=== PATIENT | female | born 1980 | race African-American/Black ===

== ENCOUNTER 2018-09-08 11:51 | Inpatient (IN) | payer BC ==
--- NOTE | 2018-09-08 12:53 | HP ---
Screened but not Admitted - Documentation of Visit Screened but not Admitted: Yes Left Prior to Completion of Assessment: No Insurance Authorization Denied: No Patient Does Not Meet Criteria for Admission: No Level of Care Recommended at this Time: ER Evaluation/Care Alternative Treatment/Long-Term Info Provided: Yes Additional Information/Explanation: Patient is 37 yo female with hx of alcohol dependence and bipolar disorder on seroquel. Patient presents to [facility] for alcohol detox after evaluated at [facility] emergency room this morning for alcohol. Patient reports she fell "outside." Patient unable to specify where she fell. Patient has +hematoma on the left frontal side of the head. Patient was found on the floor by the waiting area, after reviewing the cameras; patient intentionally laid herself down on the floor. Patient presents intoxicated with KATHERINE =0.342. v/s 130/96, P124, RR18, P98.5 second set of vitals BP 127/77, P114, P98.2, RR18. urine tox +BZO. Pregnacy test negative. Fall Protocol #[address] Scan. Patient sent to [facility] via [facility] for further evaluation. [facility] attempted to endorse patient to provider, but no provider available d/t ED is busy.
[2018-09-08 21:45] VITALS: BMI 28.3
--- NOTE | 2018-09-08 22:13 | HP ---
CIWA Score Nausea/Vomitin (vomiting x 1) Muscle Tremors: 4-Moderate,w/Arms Extend Anxiety: 4-Mod. Anxious/Guarded Agitation: 4-Moderately Restless Paroxysmal Sweats: 2 Orientation: 0-Oriented Tacttile Disturbances: 0-None Auditory Disturbances: 0-None Visual Disturbances: 0-None Headache: 0-None Present CIWA-Ar Total Score: 16 - Admission Criteria OASAS Guidelines: Admission for Medically Managed Detox: Requires at least one of the followin. CIWA greater than 12 2. Seizures within the past 24 hours 3. Delirium tremens within the past 24 hours 4. Hallucinations within the past 24 hours 5. Acute intervention needed for co occurring medical disorder 6. Acute intervention needed for co occurring psychiatric disorder 7. Severe withdrawal that cannot be handled at a lower level of care (continued vomiting, continued diarrhea, abnormal vital signs) requiring intravenous medication and/or fluids 8. Admission ROS [facility] Chief Complaint: Alcohol withdrawal symptom Allergies/Adverse Reactions: Allergies Allergy/AdvReac Type Severity Reaction Status Date / Time No Known Allergies Allergy Verified 09/08/18 14:27 History of Present Illness: Received 37 years old female with 3 years of alcohol dependence who is seeking admission to detox from [facility]. Patient has been in previous detox at [facility] and reports in significant period of sobriety. She has history of depression and anxiety. [id number] suicide attempt and suicidal ideation at this time. Exam Limitations: No Limitations - Ebola screening Have you traveled outside of the country in the last 21 days: No Have you had contact with anyone from an Ebola affected area: No Do you have a fever: No - Review of Systems Constitutional: Chills, Loss of Appetite, Night Sweats, Changes in sleep EENT: reports: No Symptoms Reported Respiratory: reports: No Symptoms reported Cardiac: reports: No Symptoms Reported GI: reports: Nausea, Poor Appetite, Poor Fluid Intake, Vomiting (vomiting x 2), Abdominal cramping : reports: No Symptoms Reported Musculoskeletal: reports: No Symptoms Reported Integumentary: reports: Dryness, Flushing Neuro: reports: Tremors Endocrine: reports: No Symptoms Reported Hematology: reports: No Symptoms Reported Psychiatric: reports: Anxious, Depressed Other Systems: Reviewed and Negative Patient History - Patient Medical History Hx Anemia: No Hx Asthma: No Hx Chronic Obstructive Pulmonary Disease (COPD): No Hx Cancer: No Hx Cardiac Disorders: No Hx Congestive Heart Failure: No Hx Hypertension: No Hx Hypercholesterolemia: No Hx Pacemaker: No HX Cerebrovascular Accident: No Hx Seizures: No Hx Dementia: No Hx Diabetes: No Hx Gastrointestinal Disorders: No Hx Liver Disease: No Hx Genitourinary Disorders: No Hx Sexually Transmitted Disorders: No Hx Renal Disease (ESRD): No Hx Thyroid Disease: No Hx Human Immunodeficiency Virus (HIV): No (Negative 2017) Hx Hepatitis C: No Hx Depression: Yes Hx Suicide Attempt: No (Denies suicidal ideation at this time) Hx Bipolar Disorder: No Hx Schizophrenia: No Other Medical History: Anxiety - N ot on medication - Patient Surgical History Past Surgical History: Yes Hx Section: Yes (2018) - PPD History Previous Implant?: Yes Documented Results: Negative w/o proof Implanted On Prior R Admission?: No PPD to be Administered?: Yes - Reproductive History Patient is a Female of Child Bearing Age (11 -55 yrs old): Yes Last Menstrual Period: 09/03/18 Patient : No - Smoking Cessation Smoking history: Current every day smoker Have you smoked in the past 12 months: Yes Aproximately how many cigarettes per day: 5 Hx Chewing Tobacco Use: No Initiated information on smoking cessation: Yes 'Breaking Loose' booklet given: 09/08/18 - Substance & Tx. History Hx Alcohol Use: Yes Hx Substance Use: No Substance Use Type: Alcohol Hx Substance Use Treatment: Yes ([facility]) - Substances abused Alcohol Substance route: Oral Frequency: Daily Amount used: 1 PINT VODKA Age of first use: 19 Date of last use: 09/07/18 Family Disease History - Family Disease History Family History: Denies Admission Physical Exam S - Vital Signs Vital Signs: Vital Signs - 24 hr 09/08/18 09/08/18 09/08/18 12:30 21:23 21:41 Temperature 98.5 F 98.5 F 98.2 F Pulse Rate 103 H 103 H 97 H Respiratory 18 18 18 Rate Blood Pressure 178/66 H 178/66 H 143/96 - Physical General Appearance: Yes: Moderate Distress, Tremorous, Irritable, Anxious HEENTM: Yes: EOMI, Normal ENT Inspection, Normal Voice, JAKY Respiratory: Yes: Lungs Clear, Normal Breath Sounds, No Respiratory Distress Neck: Yes: Supple Breast: Yes: Breast Exam Deferred Cardiology: Yes: Tachycardia Abdominal: Yes: Normal Bowel Sounds Genitourinary: Yes: Within Normal Limits Back: Yes: Normal Inspection Musculoskeletal: Yes: Within Normal Limits Extremities: Yes: Tremors Neurological: Yes: Alert, Normal Mood/Affect Integumentary: Yes: Warm Lymphatic: Yes: Within Normal Limits - Diagnostic (1) Alcohol dependence with uncomplicated withdrawal Current Visit: Yes Status: Chronic (2) Depression Current Visit: Yes Status: Chronic Qualifiers: Depression Type: unspecified Qualified Code(s): F32.9 - Major depressive disorder, single episode, unspecified (3) Anxiety Current Visit: Yes Status: Chronic (4) Nicotine dependence Current Visit: Yes Status: Chronic Qualifiers: Nicotine product type: cigarettes Substance use status: uncomplicated Qualified Code(s): F17.210 - Nicotine dependence, cigarettes, uncomplicated Cleared for Admission S - Detox or Rehab [facility] Level of Care: Medically Managed Detox Regimen/Protocol: Librium Breathalyzer - Breathalyzer Breathalyzer: 0.342 POC Urine test - Test device test lot number: [id number] Expiration date: 01/23/20 - Control test control: Yes - Result Urine Test Results: Negative - NO line present Urine Drug Screen - Results Urine drug screen results: BZO-Benzodiazepines Inpatient Rehab Admission - Rehab Decision to Admit Inpatient rehab admission?: No
[2018-09-08] MEDS ORDERED: NICOTINE POLACRILEX 2 MG GUM BUC PRN (22:21)
[2018-09-08] MEDS ORDERED: MELATONIN 5 MG TABLETS PO PRN (22:21)
[2018-09-08] MEDS ORDERED: MAGNESIUM HYDROX 2400MG/30ML ORAL SUSPENSION 30 ML CUP PO PRN (22:21)
[2018-09-08] MEDS ORDERED: MAGNESIUM CITRATE 300 ML BOTTLE PO PRN (22:21)
[2018-09-08] MEDS ORDERED: METHOCARBAMOL 500 MG TABLET PO PRN (22:21)
[2018-09-08] MEDS ORDERED: IBUPROFEN 400 MG TABLET (FP) PO PRN (22:21)
[2018-09-08] MEDS ORDERED: MENTHOL/PHENOL 1 EACH UD MM PRN (22:21)
[2018-09-08] MEDS ORDERED: chlordiazePOXIDE HCL 25 MG CAPSULE PO PRN (22:21)
[2018-09-08] MEDS ORDERED: ACETAMINOPHEN 325 MG TABLET (FP) PO PRN ×2 (22:21)
[2018-09-08] MEDS ORDERED: MAG HYDROX/AL HYDROX/SIMETH 30 ML UNIT-DOSE CUP PO PRN (22:21)
[2018-09-08] MEDS ORDERED: hydrOXYzine PAMOATE 25 MG CAPSULE (FP) PO PRN (22:21)
[2018-09-08] MEDS ORDERED: BISMUTH SUBSALICYLATE 524 MG/30 ML UD PO PRN (22:21)
[2018-09-08] MEDS: chlordiazePOXIDE HCL 25 MG CAPSULE PO SCH (22:57)
[2018-09-09] MEDS: chlordiazePOXIDE HCL 25 MG CAPSULE PO SCH ×2 (06:13→11:17)
[2018-09-09 09:30] VITALS: BP 149/97; TEMP 96.9
[2018-09-09] MEDS ORDERED: PRENATAL VITAMINS W/ FOLIC ACID TABLET (FP) PO SCH (10:00)
[2018-09-09] MEDS ORDERED: NICOTINE 14 MG/24 HOURS TOPICAL PATCH TD SCH (10:00)
[2018-09-09] MEDS ORDERED: TRIMETHOBENZAMIDE HCL 200MG/2ML INJ IM PRN (10:26)
[2018-09-09] MEDS ORDERED: TRIMETHOBENZAMIDE HCL 300 MG CAPSULE PO PRN (12:09)
--- NOTE | 2018-09-09 12:15 | PN ---
S CIWA - CIWA Score Nausea/Vomitin Muscle Tremors: 4-Moderate,w/Arms Extend Anxiety: 4-Mod. Anxious/Guarded Agitation: 4-Moderately Restless Paroxysmal Sweats: 3 Orientation: 0-Oriented Tacttile Disturbances: 0-None Auditory Disturbances: 0-None Visual Disturbances: 0-None Headache: 0-None Present CIWA-Ar Total Score: 17 BHS Progress Note (SOAP) Subjective: nausea vomiting shakes sweats irritable agitation chills Objective: 09/09/18 12:15 Vital Signs Temperature 96.9 F L 09/09/18 10:50 Pulse Rate 89 09/09/18 10:50 Respiratory Rate 18 09/09/18 10:50 Blood Pressure 149/97 09/09/18 10:50 O2 Sat by Pulse Oximetry (%) Laboratory Tests 09/08/18 13:17 POC Glucometer 96 labs reviewed when she was at [facility] yesterday prior to [facility] inpatient detox; all labs noted elevated ast/alt,low platelet, low wbc count repeat CBC and CMP tylenol d/c encouraged fluids intake Assessment: 09/09/18 12:19 withdrawal sx Plan: continue detox increase fluids f/u pending labs
--- NOTE | 2018-09-09 12:16 | EKG ---
Test Reason : Blood Pressure : / mmHG Vent. Rate : 083 BPM Atrial Rate : 083 BPM P-R Int : 136 ms QRS Dur : 072 ms QT Int : 414 ms P-R-T Axes : 038 030 023 degrees QTc Int : 486 ms NORMAL SINUS RHYTHM PROLONGED QT ABNORMAL ECG NO PREVIOUS ECGS AVAILABLE Confirmed by NARCISA DEGROOT MD ([id number]) on 09/09/2018 12:16:26 PM Referred By: Confirmed By:NARCISA DEGROOT MD
--- NOTE | 2018-09-09 13:19 | PN ---
[facility] Progress Note Note: pt states she wants to leave and go back to work. Pt was advised not to sign out. Pt was reminded of her experience yesterday and the need to go to our main hospital for evaluation d/t her high KATHERINE on admission to our [facility]. Medical, nursing and counseling all involved in her care continued and insisting of her staying to complete her detox and that her chance for relapse are high. Pt was given some time to think but afterwards approached the RN and medical with insisting on leaving. Pt signed out AMA. Pt was escorted off the unit. referral provided for aftercare.
--- NOTE | 2018-09-09 13:20 | DS ---
[facility] Detox Discharge Summary Admission Date: 09/08/18 - History Present History: Alcohol Dependence - Physical Exam Results Vital Signs: Vital Signs Temperature 96.9 F L 09/09/18 10:50 Pulse Rate 89 09/09/18 10:50 Respiratory Rate 18 09/09/18 10:50 Blood Pressure 149/97 09/09/18 10:50 O2 Sat by Pulse Oximetry (%) - Medication Discharge Medications: Ambulatory Orders Quetiapine Fumarate [Seroquel -] 300 mg PO HS 09/08/18 - AMA Did Patient Leave Against Medical Advice: Yes (going home)
[2018-09-09 15:18] VITALS: PULSE 90
[2018-09-09] MEDS ORDERED: THIAMINE HCL 100 MG TABLET (FP) PO SCH (22:00)
[2018-09-09] MEDS ORDERED: chlordiazePOXIDE HCL 25 MG CAPSULE PO SCH (23:00)
[2018-09-10] MEDS ORDERED: chlordiazePOXIDE HCL 10 MG CAPSULE PO PRN (23:00)
[2018-09-10] MEDS ORDERED: chlordiazePOXIDE HCL 10 MG CAPSULE PO SCH (23:00)
[2018-09-11] MEDS ORDERED: chlordiazePOXIDE HCL 10 MG CAPSULE PO SCH (23:00)
== END 2018-09-09 13:12 | disposition left against medical advice (07) | DRG 770 ==
LOC: YASAS 11:51 → Y6N 21:35
PROVIDERS: ADMIT Surgery; ATTEND Surgery
PROC: HZ2ZZZZ Detoxification Services for Substance Abuse Treatment (ICD-10-PCS; principal; 2018-09-08)
DX: F10.230 Alcohol dependence with withdrawal, uncomplicated (principal); F17.210 Nicotine dependence, cigarettes, uncomplicated; F32.9 Major depressive disorder, single episode, unspecified; F41.9 Anxiety disorder, unspecified; R00.0 Tachycardia, unspecified; Z59.0 Homelessness
CPT/HCPCS: 36415; 82962; 86593; 93005; 93010

== ENCOUNTER 2018-09-08 13:56 | Emergency (ER) | payer BC ==
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
[2018-09-08 14:30] VITALS: BMI 29.2
--- NOTE | 2018-09-08 16:12 | PDOC ---
Documentation entered by Doreen Mirza SCRIBE, acting as scribe for Emeka Brown MD. Emeka Brown MD: This documentation has been prepared by the Yuki stock Sammi, SCRIBE, under my direction and personally reviewed by me in its entirety. I confirm that the documentation accurately reflects all work, treatment, procedures, and medical decision making performed by me. Attending Attestation - Resident Resident Name: KapilDanielejesúslupillo - ED Attending Attestation I have performed the following: I have examined & evaluated the patient, The case was reviewed & discussed with the resident, I agree w/resident's findings & plan, Exceptions are as noted - HPI HPI: 09/08/18 15:14 The patient is a 37 year old female, currently intoxicated, who presents from [facility] s/p fall with left eye swelling. Pt denies LOC. Denies any headache, fever, chills, nausea, vomiting. - Physicial Exam PE: 09/08/18 16:10 Patient is awake and alert, agitated, asking for food, +alcohol on breath Normocephalic; + left supraorbital ecchymosis and soft tissue swelling noted PERRLA, EOMI CTA RRR No focal neurological deficits - Medical Decision Making 09/08/18 16:11 37-year-old female with history of alcohol abuse presents with evidence of head injury and acute alcohol intoxication. Will obtain CT of head and cervical spine. Will observe to sobriety. Siwa score of 3 at this moment. Will discharge to [facility] for evaluation for inpatient detox.
[2018-09-08] MEDS ORDERED: FOLIC ACID 1 MG TABLET (FP) PO ONE (16:41)
[2018-09-08] MEDS ORDERED: THIAMINE HCL 200 MG/2 ML VIAL IVPB ONE (16:41)
[2018-09-08] MEDS ORDERED: FOLIC ACID 1 MG TABLET (FP) ONE (17:12)
[2018-09-08] MEDS ORDERED: THIAMINE HCL 200 MG/2 ML VIAL ONE (17:12)
[2018-09-08 17:26] LABS: BASO % 0.5 % (0-2.0); EOS % 1.8 % (0-4.5); HEMATOCRIT 33.4 % (32.4-45.2); HEMOGLOBIN 11.2 GM/dL (10.7-15.3); LYMPH % 29.1 % (8-40); MCH 31.1 pg (25.7-33.7); MCHC 33.4 g/dl (32.0-36.0); MEAN PLT VOLUME 8.6 fl (7.5-11.1); MONO % 7.8 % (3.8-10.2); NEUT % 60.8 % (42.8-82.8); PLATELET COUNT 114 K/MM3 (134-434); RBC 3.59 M/mm3 (3.60-5.2); RDW 15.7 % (11.6-15.6); WHITE BLOOD COUNT 3.4 K/mm3 (4.0-10.0)
[2018-09-08 17:52] LABS: ALBUMIN 3.4 g/dl (3.4-5.0); ALK PHOS 90 U/L (45-117); ANION GAP 6 MMOL/L (8-16); BILIRUBIN,TOTAL 0.3 mg/dL (0.2-1); BLOOD UREA NITROGEN 7 mg/dL (7-18); CALCIUM 8.2 mg/dL (8.5-10.1); CHLORIDE 109 mmol/L (98-107); CO2 29 mmol/L (21-32); CREATININE 0.5 mg/dL (0.55-1.3); GLUCOSE,RANDOM 83 mg/dL (74-106); MAGNESIUM 1.5 mg/dL (1.8-2.4); PHOSPHOROUS 2.6 mg/dL (2.5-4.9); POTASSIUM 3.8 mmol/L (3.5-5.1); SGOT/AST 100 U/L (15-37); SGPT/ALT 87 U/L (13-61); SODIUM 144 mmol/L (136-145); TOT PROT 6.4 g/dl (6.4-8.2)
[2018-09-08] MEDS ORDERED: MAGNESIUM 1GM/D5W - 1 GM/100 ML IVPB IVPB ONE (19:16)
[2018-09-08 20:38] VITALS: BP 98/67; PULSE 93; TEMP 98.9
== END 2018-09-08 20:49 | disposition home or self-care (01) ==
LOC: JER 13:56
PROC: 3E033GC Introduction of Other Therapeutic Substance into Peripheral Vein, Percutaneous Approach (ICD-10-PCS; principal; 2018-09-08)
DX: F10.120 Alcohol abuse with intoxication, uncomplicated (principal); F31.9 Bipolar disorder, unspecified
CPT/HCPCS: 36415; 70450-TC; 72125-TC; 80053; 83735; 84100; 84703; 85025; 99282-25

== ENCOUNTER 2019-04-09 08:28 | Inpatient (IN) | payer BC ==
[2019-04-09 10:13] VITALS: BMI 28.0
--- NOTE | 2019-04-09 10:40 | HP ---
CIWA Score Nausea/Vomitin Muscle Tremors: 2 Anxiety: 3 Agitation: 3 Paroxysmal Sweats: 1-Minimal Palms Moist Orientation: 0-Oriented Tacttile Disturbances: 2-Mild Itch/Numbness/Burn Auditory Disturbances: 1-Very Mild Visual Disturbances: 1-Very Mild Sensitivity Headache: 1-Very Mild CIWA-Ar Total Score: 16 - Admission Criteria OASAS Guidelines: Admission for Medically Managed Detox: Requires at least one of the followin. CIWA greater than 12 2. Seizures within the past 24 hours 3. Delirium tremens within the past 24 hours 4. Hallucinations within the past 24 hours 5. Acute intervention needed for co occurring medical disorder 6. Acute intervention needed for co occurring psychiatric disorder 7. Severe withdrawal that cannot be handled at a lower level of care (continued vomiting, continued diarrhea, abnormal vital signs) requiring intravenous medication and/or fluids 8. Patient presents the following: CIWA greater than 12 Admission Criteria Met: Admission criteria met Admitting History and Physical - Past Medical History ...LMP: 09/03/18 - Smoking History Smoking history: Current every day smoker Have you smoked in the past 12 months: Yes Aproximately how many cigarettes per day: 5 - Alcohol/Substance Use Hx Alcohol Use: Yes Admission ROS [facility] - HPI Chief Complaint: I need detox Allergies/Adverse Reactions: Allergies Allergy/AdvReac Type Severity Reaction Status Date / Time No Known Allergies Allergy Verified 04/09/19 10:00 History of Present Illness: 38 year old woman with alcohol dependence presents for detox, her last treatment was in August of this year in which she signed out AMA after 2 days' stay. She reports alcohol related seizures, last episode was 2 weeks ago and blackout 6 months ago. Patient was treated at [facility] last night for alcohol intoxication, she was released this morning from the ED after receiving 2 doses of librium. Patient has requested to have lorazepam for detox as she doesn't do well with librium. Exam Limitations: No Limitations - Ebola screening Have you traveled outside of the country in the last 21 days: No (N) Have you had contact with anyone from an Ebola affected area: No Have you been sick,other than usual withdrawal symptoms: No Do you have a fever: No - Review of Systems Constitutional: Chills, Loss of Appetite, Changes in sleep EENT: reports: Nose Congestion Respiratory: reports: Cough (related to smoking) Cardiac: reports: No Symptoms Reported GI: reports: Diarrhea, Poor Fluid Intake : reports: No Symptoms Reported Musculoskeletal: reports: Muscle Pain, Muscle Weakness Integumentary: reports: Dryness Neuro: reports: Headache, Seizure, Tremors Endocrine: reports: No Symptoms Reported Hematology: reports: Anemia Psychiatric: reports: Anxious, Depressed Other Systems: Reviewed and Negative Patient History - Patient Medical History Hx Anemia: Yes Hx Asthma: No Hx Chronic Obstructive Pulmonary Disease (COPD): No Hx Cancer: No Hx Cardiac Disorders: No Hx Congestive Heart Failure: No Hx Hypertension: No Hx Hypercholesterolemia: No Hx Pacemaker: No HX Cerebrovascular Accident: No Hx Seizures: Yes (related to intoxication) Hx Dementia: No Hx Diabetes: No Hx Gastrointestinal Disorders: No Hx Liver Disease: No Hx Genitourinary Disorders: No Hx Sexually Transmitted Disorders: No Hx Renal Disease (ESRD): No Hx Thyroid Disease: No Hx Human Immunodeficiency Virus (HIV): No Hx Hepatitis C: No Hx Depression: Yes Hx Suicide Attempt: No Hx Bipolar Disorder: Yes Hx Schizophrenia: No - Patient Surgical History Past Surgical History: Yes Hx Neurologic Surgery: No Hx Cataract Extraction: No Hx Cardiac Surgery: No Hx Lung Surgery: No Hx Breast Surgery: No Hx Breast Biopsy: No Hx Abdominal Surgery: No Hx Appendectomy: No Hx Cholecystectomy: No Hx Genitourinary Surgery: No Hx Section: Yes (2019) Hx Orthopedic Surgery: No Hx Hysterectomy: No Anesthesia Reaction: No - PPD History Previous Implant?: Yes Documented Results: Negative w/o proof Implanted On Prior [facility] Admission?: Yes Date: 09/10/18 PPD to be Administered?: Yes - Reproductive History Patient is a Female of Child Bearing Age (11 -55 yrs old): Yes Last Menstrual Period: 04/06/19 LMP comment: normal flow Patient : No - Smoking Cessation Smoking history: Current every day smoker Have you smoked in the past 12 months: Yes Aproximately how many cigarettes per day: 7 Hx Chewing Tobacco Use: No Initiated information on smoking cessation: Yes 'Breaking Loose' booklet given: 04/09/19 - Substances abused Alcohol Substance route: Oral Frequency: Daily Amount used: 6 shots of VODKA Age of first use: 27 Date of last use: 04/09/19 Admission Physical Exam BHS - Vital Signs Vital Signs: Vital Signs - 24 hr 04/09/19 10:05 Temperature 98.6 F Pulse Rate 106 H Respiratory 16 Rate Blood Pressure 135/90 - Physical General Appearance: Yes: No Apparent Distress, Alcohol on Breath HEENTM: Yes: EOMI, Hearing grossly Normal, Normal ENT Inspection, Normocephalic , Normal Voice, Pharynx Normal Respiratory: Yes: Chest Non-Tender, Lungs Clear, Normal Breath Sounds, No Respiratory Distress, No Accessory Muscle Use Neck: Yes: No masses,lesions,Nodules, Supple Breast: Yes: Breast Exam Deferred Cardiology: Yes: Regular Rhythm, Regular Rate, S1, S2 Abdominal: Yes: Normal Bowel Sounds, Non Tender, Soft Genitourinary: Yes: Within Normal Limits Back: Yes: Normal Inspection Musculoskeletal: Yes: full range of Motion, Gait Steady, Pelvis Stable Extremities: Yes: Normal Inspection, Normal Range of Motion, Non-Tender Neurological: Yes: edging supervisor II-XII NML intact, Fully Oriented, Alert, Motor Strength 5/5, Normal Mood/Affect, Normal Response Integumentary: Yes: Normal Color, Warm Lymphatic: Yes: Within Normal Limits - Diagnostic (1) Alcohol dependence with uncomplicated withdrawal Current Visit: Yes Status: Acute (2) Anxiety Current Visit: Yes Status: Acute (3) Depression Current Visit: No Status: Acute Qualifiers: Depression Type: major depressive disorder (4) Nicotine dependence Current Visit: No Status: Chronic Qualifiers: Nicotine product type: cigarettes Substance use status: uncomplicated Qualified Code(s): F17.210 - Nicotine dependence, cigarettes, uncomplicated Cleared for Admission S - Detox or Rehab [facility] Level of Care: Medically Managed Claeared for Rehab Admission: No Breathalyzer - Breathalyzer Breathalyzer: 0.342 POC Urine test - Test device test lot number: [id number] Expiration date: 01/23/20 - Control test control: Yes Urine Drug Screen - Results Urine drug screen results: BZO-Benzodiazepines Inpatient Rehab Admission - Rehab Decision to Admit Inpatient rehab admission?: No
[2019-04-09] MEDS ORDERED: MAGNESIUM CITRATE 300 ML BOTTLE PO PRN (10:51)
[2019-04-09] MEDS ORDERED: NICOTINE POLACRILEX 2 MG GUM BUC PRN (10:51)
[2019-04-09] MEDS ORDERED: P-EPHED 60MG/TRIPROLIDI 2.5MG TABLET PO PRN (10:51)
[2019-04-09] MEDS ORDERED: MAGNESIUM HYDROX 2400MG/30ML ORAL SUSPENSION 30 ML CUP PO PRN (10:51)
[2019-04-09] MEDS ORDERED: MELATONIN 5 MG TABLETS PO PRN (10:51)
[2019-04-09] MEDS ORDERED: ONDANSETRON *ODT* 4 MG TABLET SL PRN (10:51)
[2019-04-09] MEDS ORDERED: MAG HYDROX/AL HYDROX/SIMETH 30 ML UNIT-DOSE CUP PO PRN (10:51)
[2019-04-09] MEDS ORDERED: MENTHOL/PHENOL 1 EACH UD MM PRN (10:51)
[2019-04-09] MEDS ORDERED: IBUPROFEN 400 MG TABLET (FP) PO PRN (10:51)
[2019-04-09] MEDS ORDERED: LORazepam 1 MG TABLET PO PRN (10:51)
[2019-04-09] MEDS ORDERED: ACETAMINOPHEN 325 MG TABLET (FP) PO PRN ×2 (10:51)
[2019-04-09] MEDS ORDERED: BISMUTH SUBSALICYLATE 524 MG/30 ML UD PO PRN (10:51)
[2019-04-09] MEDS: LORazepam 2 MG TABLET PO SCH ×3 (12:10→22:53)
[2019-04-09] MEDS: NICOTINE 7 MG/24 HOURS TOPICAL PATCH TD SCH (12:11)
[2019-04-09] MEDS ORDERED: QUEtiapine FUMARATE 300 MG TABLET PO ONE (22:00)
[2019-04-09] MEDS: THIAMINE HCL 100 MG TABLET (FP) PO SCH (22:53)
[2019-04-09] MEDS: METHOCARBAMOL 500 MG TABLET PO PRN (22:55)
[2019-04-10] MEDS: LORazepam 2 MG TABLET PO SCH ×4 (05:33→22:55)
[2019-04-10] MEDS: NICOTINE 7 MG/24 HOURS TOPICAL PATCH TD SCH (10:22)
[2019-04-10] MEDS: PRENATAL VITAMINS W/ FOLIC ACID TABLET (FP) PO SCH (10:22)
[2019-04-10] MEDS: hydrOXYzine PAMOATE 25 MG CAPSULE (FP) PO PRN ×3 (10:23→22:53)
[2019-04-10 11:05] LABS: HEMATOCRIT 35.7 % (32.4-45.2); HEMOGLOBIN 11.7 GM/dL (10.7-15.3); MCH 29.8 pg (25.7-33.7); MCHC 32.8 g/dl (32.0-36.0); MEAN CELL VOLUME 90.8 fl (80-96); MEAN PLT VOLUME 9.8 fl (7.5-11.1); PLATELET COUNT 144 K/MM3 (134-434); RBC 3.93 M/mm3 (3.60-5.2); WHITE BLOOD COUNT 2.6 K/mm3 (4.0-10.0)
[2019-04-10 11:12] LABS: ALBUMIN 3.5 g/dl (3.4-5.0); BILIRUBIN,TOTAL 0.5 mg/dL (0.2-1); BLOOD UREA NITROGEN 8.9 mg/dL (7-18); CREATININE 0.6 mg/dL (0.55-1.3); POTASSIUM 3.9 mmol/L (3.5-5.1); TOT PROT 6.9 g/dl (6.4-8.2)
--- NOTE | 2019-04-10 16:42 | PN ---
S CIWA - CIWA Score Nausea/Vomitin-Mild Nausea/No Vomiting Muscle Tremors: 3 Anxiety: 3 Agitation: 3 Paroxysmal Sweats: 3 Orientation: 0-Oriented Tacttile Disturbances: 0-None Auditory Disturbances: 0-None Visual Disturbances: 0-None Headache: 0-None Present CIWA-Ar Total Score: 13 S Progress Note (SOAP) Subjective: Interrupted sleep. Patient requests to see Psychiatrist stating she takes seroquel and lithium at home. Objective: 04/10/19 16:37 Last Vital Signs Temp Pulse Resp BP Pulse Ox 97.2 F L 98 H 18 124/82 04/10/19 11:31 04/10/19 11:31 04/10/19 11:31 04/10/19 11:31 Laboratory Tests 04/10/19 04/10/19 04/10/19 07:40 07:40 07:40 WBC 2.6 L RBC 3.93 Hgb 11.7 Hct 35.7 MCV 90.8 MCH 29.8 MCHC 32.8 RDW 16.0 H Plt Count 144 D MPV 9.8 D Sodium 137 Potassium 3.9 Chloride 103 Carbon Dioxide 30 Anion Gap 4 L BUN 8.9 Creatinine 0.6 Est GFR (CKD-EPI)AfAm 133.07 Est GFR (CKD-EPI)NonAf 114.82 Random Glucose 89 Calcium 9.0 Total Bilirubin 0.5 AST 50 H ALT 60 Alkaline Phosphatase 81 Total Protein 6.9 Albumin 3.5 RPR Titer Nonreactive Labs reviewed: wbc 2.6 (low), AST 50 (mildly elevated) Assessment: 04/10/19 16:40 Withdrawal sxs Leukocytopenia and transaminitis noted Plan: Continue detox Encouraged PO water intake Leukocytopenia: encouraged good hand washing with soap and water, repeat CBC Transaminitis, mild: most likely due to alcoholism, repeat AST
[2019-04-10] MEDS: METHOCARBAMOL 500 MG TABLET PO PRN ×2 (17:41→22:52)
[2019-04-10] MEDS ORDERED: QUEtiapine FUMARATE 300 MG TABLET PO ONE (22:37)
[2019-04-10] MEDS: THIAMINE HCL 100 MG TABLET (FP) PO SCH (22:55)
[2019-04-11] MEDS ORDERED: LORazepam 1 MG TABLET PO SCH (05:00)
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
--- NOTE | 2019-04-11 09:29 | PN ---
S CIWA - CIWA Score Nausea/Vomitin-No Nausea/No Vomiting Muscle Tremors: 4-Moderate,w/Arms Extend Anxiety: 4-Mod. Anxious/Guarded Agitation: 4-Moderately Restless Paroxysmal Sweats: 3 Orientation: 0-Oriented Tacttile Disturbances: 0-None Auditory Disturbances: 0-None Visual Disturbances: 0-None Headache: 0-None Present CIWA-Ar Total Score: 15 BHS Progress Note (SOAP) Subjective: the ativan and librium does not help me anymore. I want something different shakes sweats body aches anxiety body aches Objective: 04/11/19 09:24 Vital Signs Temperature 96.8 F L 04/11/19 05:56 Pulse Rate 78 04/11/19 05:56 Respiratory Rate 18 04/11/19 05:56 Blood Pressure 110/69 04/11/19 05:56 O2 Sat by Pulse Oximetry (%) Laboratory Tests 04/10/19 04/10/19 04/10/19 07:40 07:40 07:40 WBC 2.6 L RBC 3.93 Hgb 11.7 Hct 35.7 MCV 90.8 MCH 29.8 MCHC 32.8 RDW 16.0 H Plt Count 144 D MPV 9.8 D Sodium 137 Potassium 3.9 Chloride 103 Carbon Dioxide 30 Anion Gap 4 L BUN 8.9 Creatinine 0.6 Est GFR (CKD-EPI)AfAm 133.07 Est GFR (CKD-EPI)NonAf 114.82 Random Glucose 89 Calcium 9.0 Total Bilirubin 0.5 AST 50 H ALT 60 Alkaline Phosphatase 81 Total Protein 6.9 Albumin 3.5 RPR Titer Nonreactive labs noted aaox3 ambulating no acute distress Assessment: 04/11/19 09:26 withdrawal sx discussed with pt about putting her on a valium taper; pt agreed she will benefit from a valium taper as oppose to the other regimen we provide. Plan: continue detox with valium taper; pt agreed increase fluids
[2019-04-11] MEDS: PRENATAL VITAMINS W/ FOLIC ACID TABLET (FP) PO SCH (10:41)
[2019-04-11] MEDS: hydrOXYzine PAMOATE 50 MG CAPSULE (FP) PO PRN ×2 (10:44→22:08)
[2019-04-11] MEDS: LITHIUM CARBONATE 300 MG CAPSULE (FP) PO SCH ×2 (10:45→22:02)
[2019-04-11] MEDS: NICOTINE 7 MG/24 HOURS TOPICAL PATCH TD SCH (10:46)
[2019-04-11] MEDS: diazePAM 5 MG TABLET PO PRN (11:31)
[2019-04-11 12:15] LABS: BASO % 0.9 % (0-2.0); EOS % 2.2 % (0-4.5); HEMATOCRIT 39.4 % (32.4-45.2); HEMOGLOBIN 12.8 GM/dL (10.7-15.3); LYMPH % 38.9 % (8-40); MCH 29.4 pg (25.7-33.7); MCHC 32.5 g/dl (32.0-36.0); MEAN CELL VOLUME 90.7 fl (80-96); MEAN PLT VOLUME 9.8 fl (7.5-11.1); MONO % 13.3 % (3.8-10.2); NEUT % 44.7 % (42.8-82.8); PLATELET COUNT 148 K/MM3 (134-434); RBC 4.35 M/mm3 (3.60-5.2); RDW 16.3 % (11.6-15.6); WHITE BLOOD COUNT 2.8 K/mm3 (4.0-10.0)
[2019-04-11] MEDS: diazePAM 5 MG TABLET PO SCH ×2 (17:12→22:04)
[2019-04-11] MEDS: THIAMINE HCL 100 MG TABLET (FP) PO SCH (22:02)
[2019-04-11] MEDS: METHOCARBAMOL 500 MG TABLET PO PRN (22:04)
[2019-04-12] MEDS ORDERED: LORazepam 0.5 MG TABLET PO PRN
[2019-04-12] MEDS ORDERED: LORazepam 0.5 MG TABLET PO SCH (05:00)
[2019-04-12] MEDS: diazePAM 5 MG TABLET PO SCH ×3 (06:16→22:12)
[2019-04-12] MEDS: PRENATAL VITAMINS W/ FOLIC ACID TABLET (FP) PO SCH (10:37)
[2019-04-12] MEDS: NICOTINE 7 MG/24 HOURS TOPICAL PATCH TD SCH (10:37)
[2019-04-12] MEDS: LITHIUM CARBONATE 300 MG CAPSULE (FP) PO SCH ×2 (10:37→22:12)
[2019-04-12] MEDS: diazePAM 5 MG TABLET PO PRN ×2 (10:40→18:35)
--- NOTE | 2019-04-12 12:02 | PN ---
S CIWA - CIWA Score Nausea/Vomitin-No Nausea/No Vomiting Muscle Tremors: 3 Anxiety: 2 Agitation: 2 Paroxysmal Sweats: 1-Minimal Palms Moist Orientation: 0-Oriented Tacttile Disturbances: 0-None Auditory Disturbances: 0-None Visual Disturbances: 0-None Headache: 0-None Present CIWA-Ar Total Score: 8 BHS Progress Note (SOAP) Subjective: mild shakes little sweats body aches feeling better Objective: 04/12/19 12:00 Vital Signs Temperature 98.2 F 04/12/19 10:31 Pulse Rate 65 04/12/19 10:31 Respiratory Rate 18 04/12/19 10:31 Blood Pressure 124/71 04/12/19 10:31 O2 Sat by Pulse Oximetry (%) Laboratory Tests 04/09/19 04/10/19 04/10/19 10:35 07:40 07:40 WBC 2.6 L RBC 3.93 Hgb 11.7 Hct 35.7 MCV 90.8 MCH 29.8 MCHC 32.8 RDW 16.0 H Plt Count 144 D MPV 9.8 D Absolute Neuts (auto) Neutrophils % Lymphocytes % Monocytes % Eosinophils % Basophils % Nucleated RBC % Sodium 137 Potassium 3.9 Chloride 103 Carbon Dioxide 30 Anion Gap 4 L BUN 8.9 Creatinine 0.6 Est GFR (CKD-EPI)AfAm 133.07 Est GFR (CKD-EPI)NonAf 114.82 Random Glucose 89 Calcium 9.0 Total Bilirubin 0.5 AST 50 H ALT 60 Alkaline Phosphatase 81 Total Protein 6.9 Albumin 3.5 POC Urine HCG, Qual Negative [place] RPR Titer 04/10/19 04/11/19 04/11/19 07:40 08:15 08:15 WBC 2.8 L RBC 4.35 Hgb 12.8 Hct 39.4 MCV 90.7 MCH 29.4 MCHC 32.5 RDW 16.3 H Plt Count 148 MPV 9.8 Absolute Neuts (auto) 1.2 L Neutrophils % 44.7 D Lymphocytes % 38.9 D Monocytes % 13.3 H Eosinophils % 2.2 Basophils % 0.9 Nucleated RBC % 1 H Sodium Potassium Chloride Carbon Dioxide Anion Gap BUN Creatinine Est GFR (CKD-EPI)AfAm Est GFR (CKD-EPI)NonAf Random Glucose Calcium Total Bilirubin AST 59 H ALT Alkaline Phosphatase Total Protein Albumin POC Urine HCG, Qual [place] RPR Titer Nonreactive 04/11/19 09:00 WBC RBC Hgb Hct MCV MCH MCHC RDW Plt Count MPV Absolute Neuts (auto) Neutrophils % Lymphocytes % Monocytes % Eosinophils % Basophils % Nucleated RBC % Sodium Potassium Chloride Carbon Dioxide Anion Gap BUN Creatinine Est GFR (CKD-EPI)AfAm Est GFR (CKD-EPI)NonAf Random Glucose Calcium Total Bilirubin AST ALT Alkaline Phosphatase Total Protein Albumin POC Urine HCG, Qual [place] 0 L RPR Titer labs noted low WBC may be drug related pt denies of any UTI, URI, will repeat CBC aaox3 ambulating no acute distress Assessment: 04/12/19 12:02 mild withdrawals Plan: continue detox increase fluids repeat lab
[2019-04-12] MEDS: hydrOXYzine PAMOATE 50 MG CAPSULE (FP) PO PRN (20:30)
[2019-04-12] MEDS: THIAMINE HCL 100 MG TABLET (FP) PO SCH (22:12)
[2019-04-12] MEDS: METHOCARBAMOL 500 MG TABLET PO PRN (22:14)
[2019-04-13] MEDS ORDERED: LORazepam 0.5 MG TABLET PO ONE (05:00)
[2019-04-13] MEDS ORDERED: diazePAM 5 MG TABLET PO SCH (06:00)
[2019-04-13 09:44] VITALS: BP 112/64; PULSE 83; TEMP 97.5
[2019-04-13] MEDS: PRENATAL VITAMINS W/ FOLIC ACID TABLET (FP) PO SCH (10:26)
[2019-04-13] MEDS: NICOTINE 7 MG/24 HOURS TOPICAL PATCH TD SCH (10:26)
[2019-04-13] MEDS: LITHIUM CARBONATE 300 MG CAPSULE (FP) PO SCH (10:26)
--- NOTE | 2019-04-13 11:01 | PN ---
[facility] Progress Note Note: pt refused to stay and complete her detox stating she is ready to go however, pt is still having anxiety and encouraged not ready for discharge today. Pt was advised of risk of relapse, seizure, DT, loss, pt insisted on leaving and signed out AMA.
--- NOTE | 2019-04-13 11:06 | DS ---
[facility] Detox Discharge Summary Admission Date: 04/09/19 - History Present History: Alcohol Dependence - Physical Exam Results Vital Signs: Vital Signs Temperature 97.5 F L 04/13/19 09:42 Pulse Rate 83 04/13/19 09:42 Respiratory Rate 20 04/13/19 09:42 Blood Pressure 112/64 04/13/19 09:42 O2 Sat by Pulse Oximetry (%) - Treatment Hospital Course: Rehab Referral Accepted - Medication Discharge Medications: Ambulatory Orders Quetiapine Fumarate [Seroquel -] 300 mg PO HS 09/08/18 [place] Carbonate [Eskalith -] 300 mg PO BID 04/09/19 - Diagnosis (1) Alcohol dependence with uncomplicated withdrawal Current Visit: Yes Status: Chronic (2) Alcohol-induced sleep disorder Current Visit: Yes Status: Acute (3) Anxiety Current Visit: Yes Status: Acute (4) Anemia Current Visit: Yes Status: Chronic (5) Bipolar II disorder Current Visit: Yes Status: Chronic (6) Alcohol related seizure Current Visit: Yes Status: Resolved (7) PTSD (post-traumatic stress disorder) Current Visit: Yes Status: Ruled-out (8) Depression Current Visit: No Status: Acute Qualifiers: Depression Type: major depressive disorder (9) Intoxication Current Visit: No Status: Acute (10) Nicotine dependence Current Visit: Yes Status: Chronic Qualifiers: Nicotine product type: cigarettes Substance use status: uncomplicated Qualified Code(s): F17.210 - Nicotine dependence, cigarettes, uncomplicated - AMA Did Patient Leave Against Medical Advice: Yes
[2019-04-14] MEDS ORDERED: diazePAM 5 MG TABLET PO ONE (06:00)
== END 2019-04-13 11:13 | disposition left against medical advice (07) | DRG 770 ==
LOC: YASAS 08:28 → Y6N 10:56
PROVIDERS: ADMIT Allergy & Immunology; ATTEND Allergy & Immunology
PROC: HZ2ZZZZ Detoxification Services for Substance Abuse Treatment (ICD-10-PCS; principal; 2019-04-09)
DX: F10.230 Alcohol dependence with withdrawal, uncomplicated (principal); F17.210 Nicotine dependence, cigarettes, uncomplicated; F10.282 Alcohol dependence with alcohol-induced sleep disorder; F33.9 Major depressive disorder, recurrent, unspecified; F31.81 Bipolar II disorder; F43.10 Post-traumatic stress disorder, unspecified; F41.9 Anxiety disorder, unspecified; G40.509 Epileptic seizures related to external causes, not intractable, without status epilepticus; D64.9 Anemia, unspecified; Z59.0 Homelessness
CPT/HCPCS: 36415; 80053; 80178; 81025; 84450; 85025; 85027; 86593